=== PATIENT | female | born 1995 | race Caucasian/White ===

== ENCOUNTER 2022-10-27 06:32 | Inpatient (IN) ==
[2022-10-27] MEDS ORDERED: PITOCIN ONE (06:40)
[2022-10-27] MEDS ORDERED: D5 1/2 NS 1,000 ML 1,000 ML IV ONE (06:40)
[2022-10-27] MEDS ORDERED: BETADINE SOLN ONE (06:41)
[2022-10-27] MEDS ORDERED: D5 LR + PITOCIN 10 UNITS/L 10 UNITS/1,000 ML BAG IV ONE (06:41)
[2022-10-27] MEDS ORDERED: D5 1/2 NS 1,000 mL + PITOCIN 20 UNITS/L IV 20 UNITS/1,000 ML BAG IV ONE (06:41)
--- NOTE | 2022-10-27 07:12 | DR.OB ---
OB Quick Note - Assessment/Plan Assessment/Plan: L&D 10/27/22 at 7:05am S-No complaint. O-Afebrile,VSS TLA=967 with good LTV, +accel, no decel. CTX=none CVX=3cm/50%/-1/VTX AROM with clear fluid. IUPC and FSE placed. A-IUP at 38 2/7 weeks for induction Polyhydramnios +GBS P-Begin pitocin induction Anticipate
[2022-10-27] MEDS ORDERED: PITOCIN IVP ONE (07:19)
[2022-10-27] MEDS ORDERED: D5 LR + PITOCIN 10 UNITS/L 10 UNITS/1,000 ML BAG IV PRN (07:19)
[2022-10-27] MEDS ORDERED: STADOL INJ IVP PRN (07:19)
[2022-10-27] MEDS ORDERED: D5 1/2 NS 1,000 ML 1,000 ML IV SCH (07:19)
[2022-10-27] MEDS ORDERED: ZOFRAN INJ 4 MG VIAL IVP PRN (07:19)
[2022-10-27] MEDS ORDERED: AMPICILLIN VIAL 2 GRAM 2 G in NS 100 ML IV + SPIKE MINIBAG* 100 ML IV SCH (07:19)
[2022-10-27] MEDS ORDERED: NUBAIN INJ 20 MG AMP IVP PRN (07:19)
[2022-10-27] MEDS ORDERED: REGLAN INJ 10 MG VIAL IVP PRN (07:19)
[2022-10-27] MEDS ORDERED: AMPICILLIN VIAL 1 GRAM 1 G in NS 50 ML IV + SPIKE MINIBAG* 50 ML IV SCH (07:19)
[2022-10-27] MEDS ORDERED: AMPICILLIN VIAL 2 GRAM ONE (07:26)
[2022-10-27] MEDS ORDERED: NS 100 ML IV 100 ML ONE ×3 (07:27→15:24)
[2022-10-27] MEDS ORDERED: LR 1,000 ML IV 1,000 ML IV ONE (09:12)
[2022-10-27] MEDS ORDERED: FENTANYL VIAL INJ 100 mcg ONE (09:18)
[2022-10-27] MEDS ORDERED: NAROPIN EPIDURAL 0.2% 100 ML ONE (09:19)
[2022-10-27] MEDS ORDERED: ZOFRAN INJ 4 MG VIAL ONE (09:33)
[2022-10-27] MEDS ORDERED: AMPICILLIN VIAL 1 GRAM ONE ×2 (11:18→15:23)
--- NOTE | 2022-10-27 12:27 | DR.OB ---
OB Quick Note - Assessment/Plan Assessment/Plan: L&D 10/27/22 at 12:20pm Pitocin=20mu/min. Ampicillin S-No complaint. s/p epidural. O-Afebrile,VSS VAH=778 with good LTV, +accel, no decel. CTX=q 1 1/2 to 2 min., about 45-55mmHg CVX=6cm/50%/-1/VTX A-IUP at 38 2/7 weeks for induction Polyhydramnios +GBS P-Cont. pitocin induction and IV ABX in labor Anticipate
[2022-10-27] MEDS ORDERED: AMPICILLIN VIAL 1 GRAM 1 G in NS 50 ML IV 50 ML IV SCH (16:00)
[2022-10-27] MEDS: D5 1/2 NS 1,000 ML 1,000 ML with PITOCIN 20 UNITS IV SCH ×2 (16:15)
[2022-10-27] MEDS ORDERED: MOTRIN TAB 800 MG PO PRN (16:28)
--- NOTE | 2022-10-27 16:28 | DR.OB ---
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 Head delivered over intact perineum. Nuchal cord x 1 reduced. Nose and mouth bulb suctioned. Body delivered over intact perineum. Cord clamped x 2 and cut. Infant handed to attendant. Cord sent for gases. Placenta delivered spontaneously / intact / 3 vessel cord. No CVX / vaginal / perineal tears noted. A small superficial scrape near introitus made hemostatic with silver nitrate and pressure. Viable female , VTX/OA, wt=6'15" and 9/9, stable to NBN. Mother stable to RR. MCH=[id number].
[2022-10-27] MEDS ORDERED: AMBIEN PO PRN (17:18)
[2022-10-27] MEDS ORDERED: ADACEL or BOOSTRIX TDaP VACCINE IM ONE (17:18)
[2022-10-27] MEDS ORDERED: MILK OF MAGNESIA PO PRN (17:18)
[2022-10-27] MEDS ORDERED: DERMOPLAST PAIN RELIEF SPRAY TOP PRN (17:18)
[2022-10-27] MEDS: VSL#3 PO SCH (17:57)
[2022-10-28] MEDS: D5 1/2 NS 1,000 ML 1,000 ML with PITOCIN 20 UNITS IV SCH ×2 (04:35)
[2022-10-28 04:50] LABS: HEMATOCRIT 34.3 % (36.0-47.0)
[2022-10-28] MEDS ORDERED: PRENATAL PLUS PO SCH (09:00)
[2022-10-28] MEDS ORDERED: ADACEL or BOOSTRIX TDaP VACCINE IM ONE (09:06)
[2022-10-28] MEDS: VSL#3 PO SCH (10:08)
[2022-10-28 17:00] VITALS: BP 123/76; PULSE 86; TEMP 98.8; O2SAT 97
== END 2022-10-28 18:15 | disposition home or self-care (01) | DRG 806 ==
LOC: LD 06:32 → MED/SURG 17:25
PROVIDERS: ADMIT Specialist; ATTEND Specialist
DX: O98.82 Other maternal infectious and parasitic diseases complicating childbirth; Z01.812 Encounter for preprocedural laboratory examination; O99.613 Diseases of the digestive system complicating pregnancy, third trimester; K21.9 Gastro-esophageal reflux disease without esophagitis; B95.1 Streptococcus, group B, as the cause of diseases classified elsewhere; Z3A.38 38 weeks gestation of pregnancy; Z37.0 Single live birth; R79.89 Other specified abnormal findings of blood chemistry; O40.3XX0 Polyhydramnios, third trimester, not applicable or unspecified